=== PATIENT | female | born 1950 | race Caucasian/White ===

== ENCOUNTER → 2024-07-28 13:53 | Outpatient (REF) | payer MEDICARE, SELFPAY | LOC: HWWDC 13:53 | PROVIDERS: ATTENDING PHYSICIAN Physician Assistant Medical | DX: Z12.31 Encounter for screening mammogram for malignant neoplasm of breast (principal) | CPT/HCPCS: 77063; 77067 ==

== ENCOUNTER → 2024-08-25 13:00 | Outpatient (REF) | payer MEDICARE, SELFPAY | LOC: WDC 13:00 | PROVIDERS: ATTENDING PHYSICIAN Physician Assistant Medical | DX: R92.30 Dense breasts, unspecified (principal) | CPT/HCPCS: 76641 ==